=== PATIENT | female | born 1960 | race Caucasian/White ===

== ENCOUNTER → 2023-06-23 08:41 | Outpatient (REF) | payer BC, SELFPAY | LOC: RAD 08:41 | PROVIDERS: ATTENDING PHYSICIAN Family Medicine | DX: M81.0 Age-related osteoporosis without current pathological fracture (principal) | CPT/HCPCS: 77080 ==

== ENCOUNTER → 2023-07-09 06:57 | Outpatient (REF) | payer BC, SELFPAY | LOC: WDC 06:57 | PROVIDERS: ATTENDING PHYSICIAN Obstetrics & Gynecology Gynecology; FAMILY PHYSICIAN Family Medicine | DX: Z12.31 Encounter for screening mammogram for malignant neoplasm of breast (principal) | CPT/HCPCS: 77063; 77067 ==

== ENCOUNTER 2023-12-02 06:23 | Day surgery (SDC) | payer BC, SELFPAY ==
[2023-11-27 08:08] VITALS: BMI 22.3
[2023-12-02] VITALS (10 sets, daily range): BP systolic 90–159; BP diastolic 52–82; BMI 22.3
[2023-12-02] MEDS: LYRICA 150 MG PO (07:38)
[2023-12-02] MEDS: TYLENOL 1000 MG PO (07:38)
[2023-12-02] MEDS: NORMOSOL-R 1000 IV (07:39)
[2023-12-02] MEDS: CELEBREX 200 MG PO (07:39)
--- NOTE | 2023-12-02 10:07 | W.IMMPOSTOP ---
Surgical Immed Post Op Note
-
Primary Surgeon: Govind Madison MD
Assisting Surgeon: None
Pre-op Diagnosis: Grade 3 internal hemorrhoids
Post-op Diagnosis: Grade 3 internal hemorrhoids
Procedure Performed: Hemorrhoidopexy x 4 (suture ligation with pexy)
Anesthesia Type: Sedation with local
Specimen / Cultures: None
Estimated Blood Loss: 5 mL
Complications: None
Operative Findings: Per op note
--- NOTE | 2023-12-02 10:09 | OR.RPT ---
Operative Report
Operative Report
DATE OF OPERATION: 12/02/2023
SURGEON: Govind Madison MD
PREOPERATIVE DIAGNOSIS: Grade 3 internal hemorrhoids
POSTOPERATIVE DIAGNOSIS: Grade 3 internal hemorrhoids
OPERATION: Exam under anesthesia, suture hemorrhoidopexy x 4, bilateral pudendal nerve block
ASSISTANTS:
1. None
ANESTHESIA: MAC w/ local
ESTIMATED BLOOD LOSS: 5 mL
FINDINGS:
1. Moderate sized internal hemorrhoids in the right anterior, right lateral, right posterior, and left lateral position with minimal to small external components
SPECIMENS:
1. None
DRAINS: N/A
COMPLICATIONS: None
INDICATIONS: The patient is a 63-year-old female who presented to my office with pain and spotting of blood after BMs and was found to have multiple moderate-sized internal hemorrhoids. After a trial of nonoperative measures, the symptoms
persisted. Therefore, the patient was recommended to have surgery. I explained that a suture hemorrhoidopexy would be the plan for any concerning internal hemorrhoids. However, if a hemorrhoid identified on exam under anesthesia is too large for a
suture hemorrhoidopexy, I would perform an excisional hemorrhoidectomy. The operation was discussed with the patient in detail, including the risks, benefits and alternatives. Risks described included, but not limited to, bleeding, infection,
urinary retention, damage to nearby structures such as the anal sphincter, fecal incontinence, anal stenosis, recurrence, and anesthetic risks. The patient understood and agreed to proceed. The consent was signed and placed in the chart.
PROCEDURE IN DETAIL: The patient was taken to the operating room. The patient was then placed on the operating table in prone position. Sequential compression devices were placed bilaterally. Sedation was commenced without complication. Two seat
belts were secured around the legs and upper back. The buttocks were taped apart. The perineum was prepped and draped in the usual fashion. A time-out was then performed verifying the correct patient, procedure, operative site, positioning, and
special equipment.
Local anesthesia used was a mixture of 60 mL of 0.25% Marcaine without epinephrine (with epinephrine was on backorder) and 0.6 mg of dexamethasone. 40 mL was injected perianally at the beginning of the case. The anorectal exam was performed
assessing all four quadrants of the anal canal using Hill-Griffin retractors in progressively increasing size. Small skin tags were noted in the right posterior and right anterior position. Moderate-sized internal hemorrhoids were noted in the
right posterior, right lateral, right posterior and left lateral position. Each hemorrhoid had a very minor external component, therefore I elected to forego formal hemorrhoidectomy and perform suture hemorrhoidopexy for these internal hemorrhoids.
Using a Hill-Griffin retractor, the hemorrhoid was exposed. I ligated the pedicle of the hemorrhoid with a 2-0 Vicryl in a figure-of-8 fashion, leaving the tail long. I took running mucosal bites of the hemorrhoid distally toward the dentate line,
stopping 1 cm above the dentate line. I tied this down to the long tail in order to pexy the hemorrhoid. Hemostasis was confirmed. The remaining internal hemorrhoids were ligated and pexied in a similar fashion. The anal canal was checked for
hemostasis, which was ensured. The remaining 20 mL of local were injected. 5 mL was injected bilaterally for a pudendal nerve block. 10 mL was injected around the surgical site and perianally. The smallest Hill-Griffin was used to check hemostasis
once more, which was confirmed.
At this point, the procedure was complete. All needle, sponge and instrument counts were correct. The patient tolerated the procedure well and was transferred to the recovery room in stable condition with gauze dressing in place secured with silk
tape.
DICTATED BY: Govind Madison MD
== END 2023-12-02 11:41 | disposition home or self-care (01) ==
LOC: SDS 06:23
PROVIDERS: ATTENDING PHYSICIAN Surgery; FAMILY PHYSICIAN Family Medicine
DX: K64.2 Third degree hemorrhoids (principal)
CPT/HCPCS: 46945; 36415; 93005

== ENCOUNTER → 2024-07-15 07:08 | Outpatient (REF) | payer BC, SELFPAY | LOC: WDC 07:08 | PROVIDERS: ATTENDING PHYSICIAN Obstetrics & Gynecology Gynecology | DX: Z12.31 Encounter for screening mammogram for malignant neoplasm of breast (principal) | CPT/HCPCS: 77063; 77067 ==